=== PATIENT | male | born 1975 | race Caucasian/White ===

== ENCOUNTER 2017-01-26 17:52 | Emergency (ER) | payer BC ==
[~2017-01-26] VITALS: Ht 180.3 cm; Wt 100.0 kg
[2017-01-26] MEDS ORDERED: SODIUM CHLORIDE FLUSH 3 ML SYR IV ONE (18:05)
[2017-01-26] MEDS ORDERED: ONDANSETRON 2 MG/ML (Z0FRAN) 2 ML VIAL IV ONE (18:05)
[2017-01-26] MEDS ORDERED: KETOROLAC 30 MG/ML (TORADOL) 1 ML VIAL IV ONE (18:05)
[2017-01-26] MEDS ORDERED: SODIUM CHLORIDE FLUSH 10 ML SYR IV PRN (18:05)
[2017-01-26 18:21] LABS: MEAN CORPUSCULAR VOLUME 93 FL (80-100); MEAN PLATELET VOLUME 9.4 FL (6.0-9.5); PLATELET COUNT 311 10^3uL (150-450); WHITE BLOOD COUNT 12.27 10^3uL (4.0-11.0)
--- NOTE | 2017-01-26 18:25 | NUR ---
PT DENIES NEED TO URINATE AT THIS TIME. ASKS FOR A DRINK OF WATER & INFORMED HIS DRINK OF WATER IS IN HIS IV. CL
[2017-01-26 18:35] LABS: ALBUMIN 4.1 g/dL (3.4-5.0); ANION GAP 14.9 MEQ/L (3-15); CALCULATED IONIZED CALCIUM 3.7 mg/dL (3.8-4.6); TOTAL PROTEIN 7.8 g/dL (6.4-8.5)
--- NOTE | 2017-01-26 18:45 | NUR ---
Report received, care assumed. Pt in xray.
[2017-01-26] MEDS ORDERED: IBP200T PO (18:47)
--- NOTE | 2017-01-26 18:50 | NUR ---
REPORT GIVEN & CARE TSF TO JUDI SHRESTHA. CL
[2017-01-26 18:51] LABS: MEAN CORPUSCULAR HEMOGLOBIN 33.5 PG (26.0-34.0)
[2017-01-26 18:52] LABS: BAND NEUTROPHILS % 0 % (0-6); EOSINOPHILS % 0 % (0-4); LYMPHOCYTES # 0.9 #; MONOCYTES # 0.4 #; MONOCYTES % 3 % (3-11); SEGMENTED NEUTROPHILS % 89 % (51-67)
[2017-01-26 18:54] LABS: RBC MORPH NORMAL (NORMAL); TOTAL CELLS COUNTED 100
[2017-01-26] MEDS ORDERED: diphenhydrAMINE 50 MG/ML INJ (BENADRYL) IV ONE (18:55)
--- NOTE | 2017-01-26 18:57 | Diagnostic Imaging Report ---
INDICATION: Epigastric pain. COMPARISON: None available. FINDINGS: No free intraperitoneal air. Nonspecific, but nonobstructive bowel gas pattern. There are a few gas-filled small bowel loops in the right upper quadrant which are not dilated. On upright imaging, there is few air-fluid levels in the small bowel loops, which are also nonspecific. Lungs are clear. No pleural effusion or pneumothorax. Enlargement of cardiac silhouette could be due to a large amount of mediastinal fat. Normal pulmonary vessels. IMPRESSION: 1. Nonspecific but nonobstructive bowel gas pattern. 2. No free intraperitoneal air. 3. No acute cardiopulmonary process. Dictated by: Dictated on workstation # [id number]
[2017-01-26] MEDS ORDERED: methylPREDNISolone 125 MG (Solu-MEDROL) VIAL IV ONE (19:45)
--- NOTE | 2017-01-26 19:48 | Diagnostic Imaging Report ---
PROCEDURE: US Gallbladder. TECHNIQUE: Multiple real-time grayscale images were obtained over the right upper quadrant in various projections. Indication: Right upper quadrant pain. Comparison: None. Discussion: Sonographic evaluation of the right upper quadrant was performed. The liver parenchyma is hyperechoic, consistent with diffuse fatty infiltration. The liver is enlarged measuring 20 cm. No discrete liver mass identified. The gallbladder appears normal without evidence of cholelithiasis, wall thickening, or pericholecystic fluid. No evidence of biliary duct dilatation. The common bile duct is normal measuring 0.3 cm. The pancreas appears normal as visualized. The right kidney appears normal in echotexture and size without evidence of hydronephrosis or renal mass. The right kidney measures 12.5 cm. There is no ascites or abnormal bowel loops identified. No sonographic Ya sign was reported. Impression: 1. Fatty hepatomegaly. Dictated by: Dictated on workstation # [id number]
[2017-01-26] MEDS ORDERED: HYDR-3702 PO (19:53)
[2017-01-26] MEDS ORDERED: ONDA4TAB8 PO (19:53)
[2017-01-26] MEDS ORDERED: PRED10TA PO (19:53)
[2017-01-26] MEDS ORDERED: NF-TORA10 PO (19:54)
[2017-01-26 20:03] LABS: BILIRUBIN,URINE Negative (Negative); CLARITY,URINE Clear; COLOR,URINE Yellow; GLUCOSE, URINE (UA) Negative (Negative); LEUKOCYTE ESTERASE ,URINE Negative (Negative); UROBILINOGEN,URINE 0.2 mg/dL (0.2-1.0)
[2017-01-26 20:09] LABS: RBC,URINE 0-2 /HPF; URINE CENTRIFUGED VOLUME 12 mL
--- NOTE | 2017-01-26 20:10 | NUR ---
Pt dismissed to home with instructions and prescriptions. Pt stated his understanding. Left ambulatory to POV. No other concerns or questions.
[2017-01-26 20:16] VITALS: BP 135/94
== END 2017-01-26 20:10 | disposition home or self-care (01) ==
LOC: ED 17:56
DX: R10.12 Left upper quadrant pain (principal); R10.11 Right upper quadrant pain; R11.2 Nausea with vomiting, unspecified
CPT/HCPCS: 36415; 74022; 76705; 80053; 81003; 81015; 82150; 83690; 85025; 86140; 96361; 96374; 96375; 99283; J1200; J1885; J2405; J2930; J7030